=== PATIENT | female | born 1975 | race Two or more races ===

== ENCOUNTER 2024-10-30 06:12 | Day surgery (SDC) | payer OTHER ==
[2024-10-25 13:45] VITALS: BP 121/81
[~2024-10-30] VITALS: Ht 152.4 cm; Wt 65.8 kg
[2024-10-30] MEDS ORDERED: POVIDONE-IODINE 118 ML BOTT TOP ONE (08:48)
[2024-10-30] MEDS ORDERED: ONDANSETRON HCL 2 MG/ML VIAL IV ONE (10:15)
== END 2024-10-30 11:40 | disposition home or self-care (01) ==
LOC: CIR.AMB 06:12
PROVIDERS: ATTEND Obstetrics & Gynecology
DX: N84.0 Polyp of corpus uteri (principal); N84.1 Polyp of cervix uteri; N93.8 Other specified abnormal uterine and vaginal bleeding